=== PATIENT | male | born 2000 | race Caucasian/White ===

== ENCOUNTER 2024-01-11 21:13 | Emergency (ER) | payer MEDICAID, SELFPAY ==
[2024-01-11 21:14] VITALS: BP 141/89; PULSE 115; RESP 17; TEMP 36.1; O2SAT 99; BMI 18.3
--- NOTE | 2024-01-11 21:31 | ED.VIS.GI ---
HPI HPI - GI History of Present Illness Chief Complaint: Nausea/Vomiting Narrative Narrative: 23-year-old male who denies significant past medical history except for GERD, presents with multiple episodes of nausea and vomiting that has had over the last 36 hours. He states that over the last few days, he has had multiple episodes of nausea and vomiting and cannot stop. He went to have a bowel movement, states he became very nauseated and started vomiting. No prior abdominal surgeries. He has not had alcohol in over a week, and he states he last smoked marijuana approximately 2 to 3 days ago. He denies any abdominal pain, but he feels flushed. While he states he has had multiple episodes of vomiting, some of them have been blood-tinged. He feels dehydrated. [facility] Medical History GERD (gastroesophageal reflux disease) Home Medications ?Medication ?Instructions ?Recorded ?Last Taken ?Type famotidine 20 mg tablet (Acid 20 mg PO DAILY 01/11/24 Unknown History Controller) ondansetron 4 mg disintegrating 4 mg PO Q6H PRN nausea and 01/11/24 Unknown Rx tablet vomiting #15 tabs Allergy/AdvReac Type Severity Reaction Status Date / Time No Known Allergies Allergy Verified 01/11/24 21:16 Social History (Updated 01/11/24 @ 21:48 by Nasrin Frazier) household members: family Smoking Status: Never smoker ROS ROS ED ROS Narrative Constitutional: No fever, no chills. Feels flushed and hot however. HEENT: No sore throat. No neck pain. No loss of vision. No rhinorrhea. Cardiovascular: No chest pain. No palpitations. No pedal edema. Respiratory: No cough, no shortness of breath. Abdominal: No abdominal pain. Multiple episodes of nausea and vomiting and dry heaving, emesis blood-tinged. Genitourinary: No dysuria. No hematuria. Musculoskeletal: No myalgias. No arthralgias. Neurologic: No headaches. No dizziness. No lightheadedness. Skin: No rash. No change in color. Psychiatric: No depression. No anxiety. EXAM Physical Exam Narrative Exam Narrative: Afebrile. Vital signs noted. HEENT: Normocephalic. Atraumatic. PERRL, EOMI. Neck soft and supple. No point tenderness or step off. Dry mucous membranes. Cardiovascular: Positive tachycardia. No murmurs, rubs, or gallops appreciated. Respiratory: Intermittent tachypnea. Lungs clear to auscultation bilaterally. Gastrointestinal: Abdomen soft, nontender, with normoactive bowel sounds. No rebound or guarding. Neurological: Awake. Alert. Nonfocal, nonlateralizing. Skin: No rash. Normal color. No pallor. Musculoskeletal: No pedal edema. Full range of motion extremities. Const Vital Signs: 01/11/24 21:14 01/11/24 23:11 Temperature 97 F L 97 F L Temperature Source Temporal Pulse Rate 115 H 80 Respiratory Rate 17 14 Blood Pressure 141/89 H 127/81 H Blood Pressure Mean 106 96 Pulse Ox 99 99 Oxygen Delivery Method Room Air MDM MDM MDM Narrative Medical decision making narrative: In the differential diagnosis is pancreatitis versus cannabis induced hyperemesis versus gastroenteritis. I do not feel he requires CT imaging of his abdomen as it is nontender without guarding or rebound. I have low suspicion for bowel obstruction as he has not had previous abdominal surgeries. He will be given cyclic vomiting medications in the form of Ativan 1 mg intravenously, Pepcid, and Zofran as well as a bolus of normal saline 1 L intravenously. I will check his labs for dehydration or electrolyte imbalance with a CBC, CMP, and a lipase as well to help rule out pancreatitis. I reviewed his laboratory work and he has slightly elevated white count of 14.3 which I think may be demargination from his vomiting, hemoglobin normal at 16.3 with hematocrit 46.5, platelet count normal at 302. Sodium is normal at 141 and potassium slightly low at 3.3. BUN of 19 with creatinine 1.36 consistent with mild dehydration. He was bolused normal saline 1 L intravenously. Glucose appropriately elevated at 138 with an anion gap normal at 14. LFTs show AST normal at 17 with ALT 25 and slightly elevated alk phos of 42 which I think is nonspecific. Lipase is normal at 22. I doubt pancreatitis. Upon repeat examination at approximately 2250, he is feeling improved. He will be given a slight p.o. challenge of ice chips. He was told of his hypokalemia and dehydration, and I discussed with him avoiding the use of cannabis. However, he states that he has had this problem for over 2 years and is supposed to follow-up with gastroenterology, and does not think that it is secondary to cannabis use because he has had it without smoking. At this point in time, I do feel that he can be discharged to follow-up with his primary care provider. He was also given a referral to gastroenterology here with Dr. Adler. I feel he can be discharged to follow-up. Return instructions reviewed. Disposition is discharged home in stable condition. History & Record Review Discussion w/independent historian: Patient Lab Data Attestation: I reviewed the patient's lab results. Labs: Laboratory Results - last 24 hr 01/11/24 21:35 WBC 14.3 H RBC 4.93 Hgb 16.3 Hct 46.5 MCV 94.3 H MCH 33.1 H MCHC 35.1 RDW Std Deviation 44.3 H RDW Coeff of Malcom 12.8 Plt Count 302 MPV 10.1 Immature Gran % (Auto) 0.300 Neut % (Auto) 76.7 H Lymph % (Auto) 12.6 L [place] % (Auto) 10.3 H Eos % (Auto) 0.0 Baso % (Auto) 0.1 Absolute Neuts (auto) 11.0 H Absolute Lymphs (auto) 1.80 Nucleated RBC % 0 Sodium 141 Potassium 3.3 L Chloride 105 Carbon Dioxide 22.0 Anion Gap 14 BUN 19 H Creatinine 1.36 H Estim Creat Clear Calc 63.30 Est GFR (MDRD) Af Amer 83 Est GFR (MDRD) Non-Af 69 BUN/Creatinine Ratio 14.0 Glucose 138 H Calcium 10.8 H Total Bilirubin 1.20 H AST 17 ALT 25 Alkaline Phosphatase 42 L Total Protein 8.1 Albumin 5.3 H Globulin 2.8 Albumin/Globulin Ratio 1.9 Lipase 22 Discharge Plan Triage Chief Complaint: Nausea/Vomiting ED Provider: Montana Lopez Dx/Rx/DC Orders Clinical Impression: Nausea and vomiting, Hypokalemia Instructions: ED Hypokalemia, ED Vomiting (Adult) Prescriptions: New ondansetron 4 mg tablet,disintegrating 4 mg PO Q6H PRN (Reason: nausea and vomiting) Qty: 15 0RF No Action famotidine [Acid Controller] 20 mg tablet 20 mg PO DAILY Primary Care Provider: Zane Judge Referrals: Jasson Adler DO [Med Staff - Active Staff] - As soon as possible Zane Judge DO [Primary Care Provider] - 1-2 Days if not improving Activity Restrictions/Additional Instructions: Avoid use of cannabis products. Start a clear liquid diet and advance as tolerated. Print Language: Burmese Disposition Disposition: Home, Self Care Discharge Date/Time: 01/11/24 23:12
[2024-01-11] MEDS: 0.9% Normal Saline (1000mL) 1,000 ML 999 ML IV (21:38)
[2024-01-11] MEDS: Ondansetron 4 MG/2 ML Vial IV (21:39)
[2024-01-11] MEDS: LORazepam 2 MG/ML Syringe 1 MG IV (21:39)
[2024-01-11 21:41] LABS: Basophil# 0.02 X10^3/uL; Basophil% 0.1 % (0-1); Hematocrit 46.5 % (40-54); Hemoglobin 16.3 g/dL (13.0-16.5); Lymphocyte % 12.6 % (19-41); Mean Corp Hgb Conc 35.1 g/dL (32-36); Mean Corpuscular Hgb 33.1 pg (27.0-32.0); Mean Corpuscular Volume 94.3 fL (80-94); Mean Platelet Vol. 10.1 fl (6.2-12.0); Monocyte# 1.47 X10^3/uL; Monocyte% 10.3 % (0-10); NRBC Flagged by Analyzer 0 % (0-5); Neutrophil % 76.7 % (47-70); Platelet Count 302 K/mm3 (150-450); RBC Distribution Width CV 12.8 % (11.6-14.6); RBC Distribution Width SD 44.3 fl (35.1-43.9); Red Blood Count 4.93 M/mm3 (4.6-6.2); White Blood Count 14.3 K/mm3 (4.4-11.0)
[2024-01-11] MEDS: Famotidine 200 MG/20 ML MDV 20 MG in 0.9% Normal Saline (Pres. free 8 ML 300 MG IV (21:43)
[2024-01-11 22:12] LABS: ALB/GLOB Ratio 1.9 RATIO (0.9-2.4); AST(SGOT) 17 U/L (15-37); Alanine Aminotransfer ALT/SGPT 25 U/L (16-61); Albumin, Serum 5.3 g/dL (3.2-5.0); Alkaline Phosphatase 42 U/L (45-117); Anion Gap 14 (5-15); BUN 19 mg/dL (7-18); Calcium,Total 10.8 mg/dL (8.5-10.1); Chloride 105 mmol/L (98-107); Creatinine, Serum 1.36 mg/dL (0.70-1.30); EST Glomerular Filtration Rate 69 mL/min (>60); Est Glom Filt Rate - Afr Amer 83 mL/min (>60); Globulin 2.8 g/dL (2.2-4.2); Glucose 138 mg/dL (74-106); Lipase 22 U/L (13-75); Potassium 3.3 mmol/L (3.5-5.1); Protein, Total 8.1 g/dL (6.4-8.2); Sodium Level 141 mmol/L (136-145)
[2024-01-11 23:11] VITALS: BP 127/81; PULSE 80; RESP 14; TEMP 36.1; O2SAT 99
== END 2024-01-11 23:12 | disposition home or self-care (01) ==
PROVIDERS: Emergency Provider Emergency Medicine; Visit Provider Emergency Medicine
DX: R11.2 Nausea with vomiting, unspecified (principal); E87.6 Hypokalemia; E86.0 Dehydration; K21.9 Gastro-esophageal reflux disease without esophagitis
CPT/HCPCS: 80053; 83690; 85025; 99284; J7030; A4216; J2405; J3490